=== PATIENT | female | born 1995 | race Caucasian/White ===

== ENCOUNTER 2016-12-28 17:29 | Emergency (ER) | payer OTHER ==
[2016-12-28 17:39] VITALS: PULSE 69
--- NOTE | 2016-12-28 17:53 | EDPHY ---
H & P Stated Complaint: VAGINAL TEAR WITH BLEEDING FOR 3 DAYS POST INTERCOURSE HPI/ROS: CHIEF COMPLAINT: Vaginal tear HISTORY OF PRESENT ILLNESS: The patient is a 21-year-old female presenting with a vaginal tear that occurred 1 week ago after intercourse. The patient didn't feel any pain during intercourse, but felt some irritation the following day. She had intercourse a few days later and felt a tearing sensation and noticed a scrape near her labia. She woke up later that night with a significant amount of pain and active bleeding from the abraded area. For the past week the bleeding has occurred about every other day. She has constant vaginal pain and pain with urination. Early this morning the bleeding was heavier than previously. She is overdue for a depo shot. REVIEW OF SYSTEMS: A ten point review of systems was performed and is negative with the exception of the items mentioned in the HPI. Past medical history: Denies. Past surgical history: Denies. Family history: Noncontributory. Social history: Cigarette smoker. Visiting here from [place]. General Appearance: Alert. Vital signs reviewed. BP 136/89. BP 112/69 at [place]. Eyes: Pupils equal and round, no conjunctival injection, no discharge. Anicteric. ENT, Mouth: Mucous membranes are moist, no oropharyngeal erythema or edema. Neck: No lymphadenopathy, supple. Respiratory: Lungs are clear to auscultation; no wheezes, rales, or rhonchi. Cardiovascular: Regular rate and rhythm; no murmur, rub, or gallop. Gastrointestinal: Abdomen is soft and nontender, no masses or organomegaly, bowel sounds normal. Genitourinary: Superficial laceration perineum. Small amount of blood at that site. No swelling or drainage. Skin: Warm and dry, no rashes on exposed skin, normal color. Back: Nontender to palpation over the thoracolumbar spine. No CVAT. Neurological: Alert and oriented. Moving all four extremities easily and equally. Psychiatric: Normal affect. Source: Patient - Personal History LMP (Females 10-55): Extended Cycle BCP/Inj Current Tetanus/Diphtheria Vaccine: Yes - Medical/Surgical History Hx Asthma: No Hx Chronic Respiratory Disease: No Hx Diabetes: No Hx Cardiac Disease: No Hx Renal Disease: No Hx Cirrhosis: No Hx Alcoholism: No Hx HIV/AIDS: No Hx Splenectomy or Spleen Trauma: No Other PMH: DENIES - Social History Smoking Status: Current every day smoker Constitutional: Initial Vital Signs Temperature (C) 36.6 C 12/28/16 17:37 Heart Rate 69 12/28/16 17:37 Respiratory Rate 17 12/28/16 17:37 Blood Pressure 136/89 H 12/28/16 17:37 O2 Sat (%) 97 12/28/16 17:37 O2 Delivery Mode Room Air Allergies/Adverse Reactions: No Known Allergies Allergy (Unverified 12/28/16 17:36) Home Medications: Medication Instructions Recorded Depo-Provera 12/28/16 oxyCODONE/APAP 5/325 [Percocet 1 - 2 tab PO Q4H PRN #6 tab 12/28/16 5/325 (RX)] Medical Decision Making ED Course/Re-evaluation: Perineal laceration that has been intermittently bleeding over the last week. No history of trauma or abuse. No signs of infection at that site. Nothing to suggest hemodynamic instability. She denies symptoms of UTI and I do not suspect UTI. I spoke with the on-call OBGYN physician and learned that these usually heal on their own. She recommend Sitz baths, ice packs, limited activity. She will see the patient in our office tomorrow morning for further assessment should the bleeding persist. The patient would like to avoid suturing and is comfortable with this plan. Departure - Departure Disposition: Home, Routine, Self-Care Clinical Impression: Perineal laceration Qualifiers: Encounter type: initial encounter Qualified Code(s): S31.41XA - Laceration without foreign body of vagina and vulva, initial encounter Condition: Good Instructions: Laceration (ED) Additional Instructions: Call Dr. Fung's office at 8:30 AM tomorrow morning to arrange an appointment for tomorrow (let them know that you need to catch a place). Take it easy tonight--warm compresses, ice pack, Sitz bath for comfort. Use the pain medicine as needed tonight. No swimming, hot tub, intercourse, vigorous activity. Referrals: Angela Fung DO [Doctor of Osteopathy] - As per Instructions Prescriptions: oxyCODONE/APAP 5/325 [Percocet 5/325 (RX)] 1 - 2 tab PO Q4H PRN #6 tab PRN Reason: Pain, Severe Report Scribed for: Moira Winters Report Scribed by: Madeline Hollingsworth Date of Report: 12/28/16 Time of Report: 19:20 Physician Review and Approval Statement: 12/28/16 19:20 Portions of this note were transcribed by the medical dir. I, Dr. Moira Winters, personally performed the history, physical exam, and medical decision- making; and confirmed the accuracy of the information in the transcribed note.
[2016-12-28 19:05] VITALS: BP 112/69; RESP 18; TEMP 98.4; O2SAT 95
== END 2016-12-28 19:05 | disposition home or self-care (01) ==
DX: S31.41XA Laceration without foreign body of vagina and vulva, initial encounter (principal); F17.210 Nicotine dependence, cigarettes, uncomplicated; X58.XXXA Exposure to other specified factors, initial encounter